=== PATIENT | male | born 1975 | race African-American/Black ===

== ENCOUNTER 2020-01-21 09:26 | Emergency (ER) | payer SELFPAY ==
--- NOTE | ~2020-01-21 | US_ITS ---
EXAMINATION: US venous doppler LE RT DATE: 01/21/2020 09:56 INDICATION: Right calf pain. TECHNIQUE: Grayscale ultrasound images without and with compression and Doppler ultrasound images of the right lower extremity veins were obtained. COMPARISON: None. FINDINGS: The visualized portions of right common femoral vein, profunda (deep) femoral vein, femoral vein, pop liteal vein, peroneal veins, posterior tibial veins, and greater saphenous vein outflow are patent. IMPRESSION: 1. No deep venous thrombosis. Reviewed, dictated and finalized at location A.
--- NOTE | 2020-01-21 09:36 | ED.GENADULT ---
HPI - General Adult General Chief complaint: Extremity Problem,Nontraumatic Stated complaint: Calf pain Time Seen by Provider: 01/21/20 09:29 Source: RN notes reviewed History of Present Illness HPI narrative: Patient presents emergency department from urgent care for rule out DVT. Patient presented this morning for right calf pain. Patient states that Pain started last night when he was bent over the dog and heard a snap and had pain in his calf since that time. States that the pain is worse with ambulation. He denies any fevers or chills chest pain shortness of breath or any other symptoms he went to the urgent care this morning with concerns of DVT and was sent for further evaluation Related Data Allergies Allergy/AdvReac Type Severity Reaction Status Date / Time Penicillins Allergy Mild Unknown Verified 01/21/20 09:28 SEAFOOD Allergy Mild Unknown Uncoded 01/21/20 09:28 SHELLFISH Allergy Mild Unknown Uncoded 01/21/20 09:28 Review of Systems Review of Systems: Narrative: Gen.: Denies fevers or chills Eyes: Denies eye pain or visual change ENT: Denies congestion Respiratory: Denies shortness of breath or cough CV: Denies chest pain or palpitations GI: Denies abdominal pain nausea, emesis Musculoskeletal: see HPI Neuro: Denies numbness, tingling, weakness or focal weakness Skin: Denies rash Except as documented, all other systems reviewed and negative [facility] Past Medical History Medical History (Updated 01/21/20 @ 10:06 by Hunter Naranjo DO) Patient denies significant medical history Social History Social History (Updated 01/21/20 @ 09:37 by Hunter Naranjo DO) Tobacco type: e-cigarettes/vaping Exam Narrative: Exam Narrative: APPEARANCE: No acute distress, nontoxic, resting in bed Eyes: EOMI HEENT: Normocephalic, atraumatic, RESPIRATORY: No respiratory distress MUSCULOSKELETAl: The right calf is tender to palpation with no swelling, no tenderness of the ankle or knee with full range of motion of both dorsalis pedis pulse 2+, neurovascular intact, negative Gaston test with movement of the foot with squeezing the calf NEURO: Awake and alert. Following commands, speech normal, no focal deficits SKIN:: Warm, dry. Normal Color no rash or lesions Course Course Emergency Course: Discussed with patient results of workup and diagnosis. Discussed need for follow-up with primary care, proper use of medication, and reasons to return to the emergency department. Patient understands and agrees to current treatment plan Vital Signs Vital signs: Vital Signs Temperature 97.9 F 01/21/20 09:39 Pulse Rate 76 01/21/20 09:39 Respiratory Rate 14 01/21/20 09:39 Blood Pressure 144/98 H 01/21/20 09:39 Pulse Oximetry 98 01/21/20 09:39 Temperature 97.9 F 01/21/20 09:39 Pulse Rate 76 01/21/20 09:39 Respiratory Rate 14 01/21/20 09:39 Blood Pressure 144/98 H 01/21/20 09:39 Pulse Oximetry 98 01/21/20 09:39 Medical Decision Making Vital Signs Vital Signs: Vital Signs Temperature 97.9 F 01/21/20 09:39 Pulse Rate 76 01/21/20 09:39 Respiratory Rate 14 01/21/20 09:39 Blood Pressure 144/98 H 01/21/20 09:39 Pulse Oximetry 98 01/21/20 09:39 Temperature 97.9 F 01/21/20 09:39 Pulse Rate 76 01/21/20 09:39 Respiratory Rate 14 01/21/20 09:39 Blood Pressure 144/98 H 01/21/20 09:39 Pulse Oximetry 98 01/21/20 09:39 Imaging Data Radiologist's impression: ITS Impressions Venous Doppler Study 01/21/20 09:57 IMPRESSION: 1. No deep venous thrombosis. Discharge Plan Discharge Clinical Impression: Strain of right calf muscle Patient Disposition: Home, Self-Care Condition: Stable Instructions: Antibiotic Form, Muscle Strain (ED) Additional Instructions: Return for increasing pain numbness or tingling in the extremity or any other symptoms of concern Prescriptions: New ibuprofen [IBU] 600 mg tablet 600 mg PO Q6H PRN (Meta
[2020-01-21 09:39] VITALS: BP 144/98; PULSE 76; RESP 14; TEMP 36.6; O2SAT 98
[2020-01-21 10:23] VITALS: BP 132/70; PULSE 69; RESP 12; O2SAT 99
== END 2020-01-21 10:29 | disposition home or self-care (01) ==
PROVIDERS: Emergency Provider Emergency Medicine
DX: S86.911A Strain of unspecified muscle(s) and tendon(s) at lower leg level, right leg, initial encounter (principal); F17.290 Nicotine dependence, other tobacco product, uncomplicated; X50.9XXA Other and unspecified overexertion or strenuous movements or postures, initial encounter
CPT/HCPCS: 93971; 99284

== ENCOUNTER 2020-09-01 18:11 | Emergency (ER) | payer BC, SELFPAY ==
--- NOTE | ~2020-09-01 | XR_ITS ---
EXAMINATION: XR knee RT 3V EXAM DATE: 09/01/2020 18:30 INDICATION: Fall, fell patella popped out of place. TECHNIQUE: Three projections of the right knee. There is no prior study for comparison. FINDINGS: The right patella appears to be in expected position on this exam. There is extensive soft tissue swelling surrounding the knee anteriorly. There is edema in Hoffa's fat pad and suprapatellar fat pad. Also there may be small joint body in the superior patellar recess. Probable small joint eff usion. There are no acute fractures identified. There is mild tricompartmental primary osteoarthritis . IMPRESSION: 1. Extensive right knee soft tissue swelling. 2. Possible small joint body. 3. Mild osteoarthritis. 4. Probable small effusion. Reviewed, dictated and finalized at location A.
[2020-09-01 18:11] VITALS: BP 138/85; PULSE 107; RESP 20; TEMP 36.7; O2SAT 97
--- NOTE | 2020-09-01 20:39 | ED.LOWEXIN ---
HPI - Extremity Injury (Lower) General Chief Complaint: Extremity Injury, Lower Stated Complaint: r knee pain Time Seen by Provider: 09/01/20 20:23 Source: patient Mode of arrival: ambulatory Limitations: no limitations History of Present Illness HPI Narrative: This is a 45 year old male who presents for evaluation of right knee pain. He states yesterday he fell onto his right knee, and his patella popped out of place. He states he was able to reduce on his own yesterday. He has some pain and swelling. He denies numbness, tingling or weakness. He denies head injury or LOC. Related Data Home Medications Medication Instructions Recorded Confirmed budesonide-formoterol [Symbicort] INHALATION 01/21/20 metformin mg 01/21/20 montelukast mg 01/21/20 Allergies Allergy/AdvReac Type Severity Reaction Status Date / Time Penicillins Allergy Mild Unknown Verified 01/21/20 09:28 SEAFOOD Allergy Mild Unknown Uncoded 01/21/20 09:28 SHELLFISH Allergy Mild Unknown Uncoded 01/21/20 09:28 Review of Systems Review of Systems: All systems reviewed & are unremarkable except as noted in HPI and below PMFSH Past Medical History Medical History (Updated 09/02/20 @ 00:00 by Frank Abdul) Patient denies significant medical history Social History Social History (Updated 01/21/20 @ 09:37 by Hunter Naranjo DO) Tobacco type: e-cigarettes/vaping Exam Const: General: no acute distress and alert Orientation/consciousness: patient oriented x3 Eyes: EOM: EOMs intact bilaterally Resp: Effort & Inspection: normal respiratory effort Neuro: General: patient oriented x3, moves all extremities and CN's II-XI intact bilaterally Extrem: General: no pedal edema Other: right suprapatella swelling, no erythema; TTP , neurovascularly intact Psych: Mental Status: mental status grossly normal Affect: normal affect Course Reevaluation(s) Reevaluation #1: I discussed with patient discharge plan. He will be given knee immobilizer and he will follow up with his orthopedic surgeon. Date: 09/01/20 Time: 20:42 Vital Signs Vital signs: Vital Signs Temperature 98.1 F 09/01/20 18:11 Pulse Rate 107 H 09/01/20 18:11 Respiratory Rate 20 09/01/20 18:11 Blood Pressure 138/85 09/01/20 18:11 Pulse Oximetry 97 09/01/20 18:11 Temperature 98.1 F 09/01/20 18:11 Pulse Rate 84 09/01/20 21:22 Respiratory Rate 18 09/01/20 21:22 Blood Pressure 134/85 09/01/20 21:22 Pulse Oximetry 100 09/01/20 21:22 MDM - Extremity Injury (Lower) Imaging Data Radiologist's impression: ITS Impressions Knee X-Ray 09/01/20 18:33 IMPRESSION: 1. Extensive right knee soft tissue swelling. 2. Possible small joint body. 3. Mild osteoarthritis. 4. Probable small effusion. Discharge Plan Discharge Clinical Impression: Slipped patella of right knee, Contusion of knee, right Patient Disposition: Home, Self-Care Condition: Stable Instructions: Antibiotic Form, Knee Pain (ED), Patellar Dislocation (ED), Knee Immobilizer (ED) Additional Instructions: Today you were evaluated for a knee injury. Ice your knee for 20minutes intermittently for the next couple days. Follow up with your orthopedic surgeon. Take NSAIDs for your pain. Prescriptions: New ibuprofen 800 mg tablet 800 mg PO TID PRN (Reason: pain) Qty: 20 RF: 0 No Action ibuprofen [IBU] 600 mg tablet 600 mg PO Q6H PRN (Reason: pain) Qty: 20 RF: 0 metformin 1,000 mg tablet RF: 0 montelukast 10 mg tablet RF: 0 budesonide-formoterol [Symbicort] 160-4.5 mcg/actuation HFA aerosol inhaler INHALATION RF: 0 Follow-up/Referrals: PHYSICIAN,HAND WASHER [Primary Care Provider] - Familia Abrams MD [Physician] -
[2020-09-01 21:22] VITALS: BP 134/85; PULSE 84; RESP 18; O2SAT 100
== END 2020-09-01 21:23 | disposition home or self-care (01) ==
PROVIDERS: Emergency Provider General Practice
DX: S80.01XA Contusion of right knee, initial encounter (principal); M22.3X1 Other derangements of patella, right knee; Z79.84 Long term (current) use of oral hypoglycemic drugs; F17.290 Nicotine dependence, other tobacco product, uncomplicated; M17.11 Unilateral primary osteoarthritis, right knee; W19.XXXA Unspecified fall, initial encounter
CPT/HCPCS: 73562; 99283